=== PATIENT | female | born 1975 | race Caucasian/White ===

== ENCOUNTER → 2021-09-23 14:05 | Outpatient (CLI) | payer OTHER, MEDICAID, SELFPAY ==
[2021-09-23 20:09] LABS: Add Manual Diff / Slide Review NO; Basophils Absolute Auto 100 /uL (0-100); Basophils Percent Auto 0.7 % (0-2); Eosinophils Absolute Auto 200 /uL (0-450); Hematocrit 36.9 % (36-46); Hemoglobin 12.2 g/dL (12.0-16.0); Lymphocytes Absolute Auto 2100 /uL (1100-4500); Lymphocytes Percent Auto 23.4 % (25-40); Mean Corpuscular HGB Conc 32.9 % (30-36); Mean Corpuscular Hemoglobin 26.5 PG (26-34); Mean Corpuscular Volume 80.5 fL (80-100); Monocytes Absolute Auto 500 /uL (0-900); Monocytes Percent Auto 5.7 % (3-14); Neutrophils Absolute Auto 6100 /uL (1500-7000); Neutrophils Percent Auto 68.2 % (50-75); Platelet Count 320 X10^3/uL (150-400); Red Blood Cell Count 4.59 X10^6/uL (4.0-5.2); Red Cell Distribution Width 14.4 % (11.6-14.8); White Blood Cell Count 8.9 X10^3/uL (4.5-11.0)
[2021-09-23 20:26] LABS: Alanine Aminotransferase 14 IU/L (<35); Albumin 3.7 g/dL (3.5-5.0); Albumin Globulin Ratio 1.2 (1.0-2.8); Alkaline Phosphatase 60 U/L (38-126); Aspartate Aminotransferase 16 IU/L (14-36); BUN Creatinine Ratio 26.8 (6-22); Bilirubin Total 0.4 mg/dL (0.2-1.3); Blood Urea Nitrogen 15 mg/dL (7-17); C-Reactive Protein Quant < 0.5 mg/dL (<1.0); Calcium 8.8 mg/dL (8.4-10.2); Carbon Dioxide 25 mmol/L (22-32); Chloride 103 mmol/L (98-107); Estimated Glomerular Filt Rate > 60 mL/min (>60); Glucose 265 mg/dL (70-100); HEMOLYSIS < 15 (0-50); Potassium 4.3 mmol/L (3.4-5.1); Sodium 133 mmol/L (137-145); Total Protein 6.7 g/dL (6.3-8.2)
[2021-09-23 20:28] LABS: Hemoglobin A1C% w Est Avg Glu 8.8 % (4.0-6.0)
[2021-09-23 20:30] LABS: Microalbumin Urine Random < 0.6 mg/dL (0-1.6)
[2021-09-23 20:32] LABS: Erythrocyte Sedimentation Rate 14 MM/HR (0-20)
[2021-09-23 20:37] LABS: Rheumatoid Factor < 8.6 IU/mL (<12.0)
[2021-09-26 16:03] LABS: ANA Screen, IFA Negative (.)
== END ==
PROVIDERS: PCP Family Medicine; Visit Provider Family Medicine
DX: E10.65 Type 1 diabetes mellitus with hyperglycemia (principal); E78.5 Hyperlipidemia, unspecified; G89.29 Other chronic pain; M25.511 Pain in right shoulder; M25.512 Pain in left shoulder; M79.641 Pain in right hand; M79.642 Pain in left hand; M15.4 Erosive (osteo)arthritis
CPT/HCPCS: 80053; 82043; 82570; 83036; 85025; 85651; 86038; 86140; 86430

== ENCOUNTER → 2021-12-26 11:46 | Outpatient (CLI) | payer OTHER, MEDICAID, SELFPAY ==
[2021-12-26 20:19] LABS: Free T4, Direct Thyroxine 1.04 ng/dL (0.78-2.19)
== END ==
PROVIDERS: PCP Family Medicine; Visit Provider Student in an Organized Health Care Education/Training Program
DX: E03.8 Other specified hypothyroidism (principal); E06.3 Autoimmune thyroiditis
CPT/HCPCS: 84439; 84443

== ENCOUNTER → 2022-07-03 09:35 | Outpatient (CLI) | payer OTHER, MEDICAID, SELFPAY ==
[2022-07-03 19:27] LABS: BUN Creatinine Ratio 22.2 (6-22); Blood Urea Nitrogen 14 mg/dL (7-17); Calcium 8.7 mg/dL (8.4-10.2); Carbon Dioxide 28 mmol/L (22-32); Chloride 103 mmol/L (98-107); Cholesterol 167 mg/dL (140-199); Estimated Glomerular Filt Rate > 60 mL/min (>60); Glucose 122 mg/dL (70-100); HDL Cholesterol 76 mg/dL (40-60); HEMOLYSIS < 15 (0-50); LDL Cholesterol Calculated 81 mg/dL (<100); Potassium 4.4 mmol/L (3.4-5.1); Sodium 136 mmol/L (137-145); Triglycerides 51 mg/dL (35-150)
[2022-07-03 19:56] LABS: TSH w/ Reflex to FT4 5.64 uIU/mL (0.47-4.68)
[2022-07-03 20:28] LABS: Free T4, Direct Thyroxine 1.13 ng/dL (0.78-2.19)
[2022-07-05 02:32] LABS: Labcorp Hemoglobin (Hb) A1c 8.1 % (4.8-5.6)
== END ==
PROVIDERS: PCP Family Medicine; Visit Provider Family Medicine
DX: E03.9 Hypothyroidism, unspecified (principal); E10.9 Type 1 diabetes mellitus without complications; E78.2 Mixed hyperlipidemia; F32.9 Major depressive disorder, single episode, unspecified
CPT/HCPCS: 80048; 80061; 83036; 84439; 84443

== ENCOUNTER → 2023-03-19 09:57 | Outpatient (CLI) | payer OTHER, MEDICAID, SELFPAY ==
[2023-03-19 21:40] LABS: Add Manual Diff / Slide Review NO; Basophils Absolute Auto 100 /uL (0-100); Basophils Percent Auto 0.7 % (0-2); Eosinophils Absolute Auto 300 /uL (0-450); Eosinophils Percent Auto 3.9 % (2-4); Hematocrit 36.6 % (36-46); Hemoglobin 12.2 g/dL (12.0-16.0); Lymphocytes Absolute Auto 2000 /uL (1100-4500); Lymphocytes Percent Auto 26.6 % (25-40); Mean Corpuscular HGB Conc 33.3 % (30-36); Mean Corpuscular Hemoglobin 26.5 PG (26-34); Mean Corpuscular Volume 79.6 fL (80-100); Monocytes Absolute Auto 600 /uL (0-900); Monocytes Percent Auto 7.5 % (3-14); Neutrophils Absolute Auto 4700 /uL (1500-7000); Neutrophils Percent Auto 61.3 % (50-75); Platelet Count 320 X10^3/uL (150-400); Red Cell Distribution Width 13.3 % (11.6-14.8); White Blood Cell Count 7.6 X10^3/uL (4.5-11.0)
[2023-03-19 21:41] LABS: Alanine Aminotransferase 25 IU/L (<35); Albumin 3.6 g/dL (3.5-5.0); Albumin Globulin Ratio 1.3 (1.0-2.8); Alkaline Phosphatase 57 U/L (38-126); Aspartate Aminotransferase 23 IU/L (14-36); BUN Creatinine Ratio 32.6 (6-22); Bilirubin Total 0.4 mg/dL (0.2-1.3); Blood Urea Nitrogen 15 mg/dL (7-17); Calcium 8.9 mg/dL (8.4-10.2); Carbon Dioxide 24 mmol/L (22-32); Chloride 104 mmol/L (98-107); Cholesterol 143 mg/dL (140-199); Estimated Glomerular Filt Rate > 60 mL/min (>60); Globulin 2.8 g/dL (1.7-4.1); Glucose 132 mg/dL (70-100); HDL Cholesterol 59 mg/dL (40-60); HEMOLYSIS < 15 (0-50); LDL Cholesterol Calculated 76 mg/dL (<100); Potassium 4.1 mmol/L (3.4-5.1); Sodium 136 mmol/L (137-145); Total Protein 6.4 g/dL (6.3-8.2); Triglycerides 42 mg/dL (35-150)
[2023-03-19 22:32] LABS: Creatinine Urine Random 177.5 mg/dL
[2023-03-19 22:37] LABS: Microalbumi Creatinin Ratio Ur 6.1 ug/mg CR (<30); Microalbumin Urine Random 1.1 mg/dL (0-1.6)
[2023-03-19 23:19] LABS: Free T4, Direct Thyroxine 0.99 ng/dL (0.78-2.19)
[2023-03-20 02:04] LABS: Hemoglobin A1C% w Est Avg Glu 7.5 % (4.0-6.0)
[2023-03-21 07:58] LABS: C Peptide < 0.1 ng/mL (1.1-4.4)
== END ==
PROVIDERS: Student in an Organized Health Care Education/Training Program; PCP Family Medicine; Visit Provider Family Medicine
DX: E10.618 Type 1 diabetes mellitus with other diabetic arthropathy (principal); M75.00 Adhesive capsulitis of unspecified shoulder; E03.9 Hypothyroidism, unspecified; E78.2 Mixed hyperlipidemia; E10.9 Type 1 diabetes mellitus without complications; E10.69 Type 1 diabetes mellitus with other specified complication
CPT/HCPCS: 80053; 80061; 82043; 82570; 83036; 84439; 84443; 84681; 85025

== ENCOUNTER → 2023-05-11 11:18 | Outpatient (CLI) | payer OTHER, MEDICAID, SELFPAY ==
[2023-05-14 20:12] LABS: Tissue Transglutaminase IgA <2 U/mL (0-3)
[2023-05-18 01:03] LABS: Alder IgE <0.10 kU/L (Class 0); Alternaria alternata IgE <0.10 kU/L (Class 0); Aspergillus fumigatus IgE <0.10 kU/L (Class 0); Box Elder IgE <0.10 kU/L (Class 0); Cat Dander IgE <0.10 kU/L (Class 0); Cladosporium herbarum IgE <0.10 kU/L (Class 0); Cockroach IgE <0.10 kU/L (Class 0); Cottonwood IgE <0.10 kU/L (Class 0); D farinae IgE <0.10 kU/L (Class 0); D pteronyssinus IgE <0.10 kU/L (Class 0); Dog Dander IgE <0.10 kU/L (Class 0); Elm Tree IgE <0.10 kU/L (Class 0); IgE Mugwort <0.10 kU/L (Class 0); IgE Thistle,Russian <0.10 kU/L (Class 0); Immunoglobulin E 160 IU/mL (6-495); Mountain Cedar IgE <0.10 kU/L (Class 0); Mouse Urine Proteins IgE <0.10 kU/L (Class 0); Oak Tree IgE <0.10 kU/L (Class 0); Penicillium chrysogen IgE <0.10 kU/L (Class 0); Pigweed, Common IgE <0.10 kU/L (Class 0); Sheep Sorrel IgE <0.10 kU/L (Class 0); Silver Birch IgE <0.10 kU/L (Class 0); Timothy Grass IgE <0.10 kU/L (Class 0)
== END ==
PROVIDERS: PCP Family Medicine; Visit Provider Family Medicine
DX: R10.9 Unspecified abdominal pain (principal); R14.0 Abdominal distension (gaseous); R14.3 Flatulence
CPT/HCPCS: 82785; 83516; 86003

== ENCOUNTER → 2023-05-20 10:59 | Outpatient (CLI) | payer OTHER, MEDICAID, SELFPAY ==
[2023-05-25 16:56] LABS: Anti Mullerian Hormone 0.083 ng/mL (.)
== END ==
PROVIDERS: PCP Family Medicine; Visit Provider Nurse Practitioner Adult Health
DX: N92.6 Irregular menstruation, unspecified (principal)
CPT/HCPCS: 82397

== ENCOUNTER → 2023-07-01 10:55 | Outpatient (CLI) | payer OTHER, MEDICAID, SELFPAY | PROVIDERS: PCP Family Medicine; Visit Provider Nurse Practitioner Adult Health | DX: N89.8 Other specified noninflammatory disorders of vagina (principal) | CPT/HCPCS: 87798; 87801 ==

== ENCOUNTER → 2023-09-08 09:31 | Outpatient (CLI) | payer OTHER, MEDICAID, SELFPAY ==
[2023-09-08 20:13] LABS: Add Manual Diff / Slide Review NO; Basophils Absolute Auto 100 /uL (0-100); Basophils Percent Auto 0.9 % (0-2); Eosinophils Absolute Auto 200 /uL (0-450); Eosinophils Percent Auto 1.8 % (2-4); Hemoglobin 12.8 g/dL (12.0-16.0); Lymphocytes Absolute Auto 2100 /uL (1100-4500); Lymphocytes Percent Auto 21.5 % (25-40); Mean Corpuscular HGB Conc 32.8 % (30-36); Mean Corpuscular Hemoglobin 26.5 PG (26-34); Monocytes Absolute Auto 500 /uL (0-900); Monocytes Percent Auto 5.6 % (3-14); Neutrophils Absolute Auto 6800 /uL (1500-7000); Neutrophils Percent Auto 70.2 % (50-75); Platelet Count 315 X10^3/uL (150-400); Red Blood Cell Count 4.81 X10^6/uL (4.0-5.2); White Blood Cell Count 9.7 X10^3/uL (4.5-11.0)
[2023-09-08 20:26] LABS: HEMOLYSIS < 15 (0-50); Iron 74 ug/dL (37-170)
[2023-09-08 20:31] LABS: BUN Creatinine Ratio 27.1 (6-22); Blood Urea Nitrogen 16 mg/dL (7-17); C-Reactive Protein Quant < 0.5 mg/dL (<1.0); Cholesterol 155 mg/dL (140-199); Estimated Glomerular Filt Rate > 60 mL/min (>60); HDL Cholesterol 75 mg/dL (40-60); LDL Cholesterol Calculated 66 mg/dL (<100); Triglycerides 72 mg/dL (35-150)
[2023-09-08 20:34] LABS: Hemoglobin A1C% w Est Avg Glu 8.1 % (4.0-6.0)
[2023-09-08 20:35] LABS: Erythrocyte Sedimentation Rate 12 MM/HR (0-20)
[2023-09-08 20:37] LABS: Percent Iron Saturation 20 % (15-50); Total Iron Binding Capacity 362 ug/dL (265-497); Transferrin 278 mg/dL (206-381)
[2023-09-08 20:44] LABS: Free T4, Direct Thyroxine 1.42 ng/dL (0.78-2.19)
[2023-09-08 20:51] LABS: Creatinine Urine Random 195.97 mg/dL
[2023-09-08 20:55] LABS: Microalbumin Urine Random 2.1 mg/dL (0-1.6)
[2023-09-10 07:37] LABS: C Peptide < 0.1 ng/mL (1.1-4.4)
[2023-09-11 14:09] LABS: ANA Screen, IFA Negative (.)
== END ==
PROVIDERS: Student in an Organized Health Care Education/Training Program; PCP Family Medicine; Visit Provider Family Medicine
DX: R14.0 Abdominal distension (gaseous) (principal); R10.9 Unspecified abdominal pain; E10.618 Type 1 diabetes mellitus with other diabetic arthropathy; M75.00 Adhesive capsulitis of unspecified shoulder; E78.2 Mixed hyperlipidemia; F32.9 Major depressive disorder, single episode, unspecified; F41.1 Generalized anxiety disorder; M12.9 Arthropathy, unspecified; E03.9 Hypothyroidism, unspecified; E10.69 Type 1 diabetes mellitus with other specified complication; E10.9 Type 1 diabetes mellitus without complications
CPT/HCPCS: 80061; 82043; 82565; 82570; 83036; 83540; 83550; 84439; 84443; 84520; 84681; 85025; 85651; 86038; 86140

== ENCOUNTER → 2023-12-23 11:32 | Outpatient (CLI) | payer OTHER, MEDICAID, SELFPAY ==
[2023-12-27 18:36] LABS: Tissue Transglutaminase IgG 4 U/mL (0-5)
== END ==
PROVIDERS: PCP Family Medicine; Visit Provider Family Medicine
DX: E03.9 Hypothyroidism, unspecified (principal); M12.9 Arthropathy, unspecified
CPT/HCPCS: 83516

== ENCOUNTER → 2024-08-25 13:11 | Outpatient (CLI) | payer OTHER, SELFPAY ==
[2024-08-25 19:37] LABS: HEMOLYSIS < 15 (0-50); Iron 58 ug/dL (37-170)
[2024-08-25 19:38] LABS: Add Manual Diff / Slide Review NO; Hematocrit 37.9 % (36-46); Hemoglobin 12.9 g/dL (12.0-16.0); Lymphocytes Absolute Auto 2300 /uL (1100-4500); Mean Corpuscular HGB Conc 34.0 % (30-36); Mean Corpuscular Hemoglobin 28.3 PG (26-34); Mean Corpuscular Volume 83.3 fL (80-100); Platelet Count 296 X10^3/uL (150-400)
[2024-08-25 19:42] LABS: Alanine Aminotransferase 23 IU/L (<35); Albumin 3.8 g/dL (3.5-5.0); Albumin Globulin Ratio 1.3 (1.0-2.8); Alkaline Phosphatase 68 U/L (38-126); Blood Urea Nitrogen 15 mg/dL (7-17); Calcium 9.3 mg/dL (8.4-10.2); Carbon Dioxide 30 mmol/L (22-32); Chloride 101 mmol/L (98-107); Cholesterol 173 mg/dL (140-199); Estimated Glomerular Filt Rate > 60 mL/min (>60); Globulin 2.9 g/dL (1.7-4.1); Glucose 235 mg/dL (70-99); HDL Cholesterol 90 mg/dL (40-60); HEMOLYSIS < 15 (0-50); Potassium 4.2 mmol/L (3.4-5.1); Sodium 136 mmol/L (137-145); Total Protein 6.7 g/dL (6.3-8.2); Triglycerides 63 mg/dL (35-150)
[2024-08-25 19:51] LABS: Percent Iron Saturation 15 % (15-50); Total Iron Binding Capacity 378 ug/dL (265-497); Transferrin 324 mg/dL (206-381)
[2024-08-25 20:01] LABS: Follicle Stimulating Hormone 54.1 mIU/mL
[2024-08-25 20:17] LABS: TSH w/ Reflex to FT4 3.93 uIU/mL (0.47-4.68)
[2024-08-25 20:18] LABS: Estradiol, Total 36.5 pg/mL; Ferritin 5 ng/mL (11-264); Microalbumi Creatinin Ratio Ur 35.0 ug/mg CR (<30)
== END ==
PROVIDERS: PCP Family Medicine; Visit Provider Family Medicine
DX: F41.1 Generalized anxiety disorder (principal); K21.9 Gastro-esophageal reflux disease without esophagitis; E10.43 Type 1 diabetes mellitus with diabetic autonomic (poly)neuropathy; K31.84 Gastroparesis; E03.9 Hypothyroidism, unspecified; E10.42 Type 1 diabetes mellitus with diabetic polyneuropathy; R61 Generalized hyperhidrosis; R00.0 Tachycardia, unspecified; N93.9 Abnormal uterine and vaginal bleeding, unspecified; R53.83 Other fatigue; E78.2 Mixed hyperlipidemia; F32.9 Major depressive disorder, single episode, unspecified; M12.9 Arthropathy, unspecified
CPT/HCPCS: 80053; 80061; 82043; 82397; 82570; 82670; 82728; 83001; 83540; 83550; 84443; 85025

== ENCOUNTER → 2024-09-21 16:39 | Outpatient (CLI) | payer OTHER, SELFPAY | PROVIDERS: PCP Family Medicine; Visit Provider Nurse Practitioner Adult Health | DX: R39.15 Urgency of urination (principal) | CPT/HCPCS: 87086 ==

== ENCOUNTER → 2025-01-19 09:13 | Outpatient (CLI) | payer OTHER, SELFPAY ==
[2025-01-19 18:58] LABS: Cholesterol 178 mg/dL (140-199); HDL Cholesterol 94 mg/dL (40-60); Triglycerides 61 mg/dL (35-150)
[2025-01-19 19:13] LABS: Hemoglobin A1C% w Est Avg Glu 7.6 % (4.0-6.0)
[2025-01-19 19:30] LABS: Thyroid Stimulating Hormone 3.23 uIU/mL (0.47-4.68)
[2025-01-19 19:42] LABS: Ferritin 11 ng/mL (11-264)
[2025-01-19 20:05] LABS: Folate 7.3 ng/mL (2.76-20.0); Vitamin B12 700 pg/mL (239-931)
== END ==
PROVIDERS: PCP Family Medicine; Visit Provider Family Medicine
DX: E11.43 Type 2 diabetes mellitus with diabetic autonomic (poly)neuropathy (principal); K31.84 Gastroparesis; E78.2 Mixed hyperlipidemia; R79.0 Abnormal level of blood mineral; R20.0 Anesthesia of skin; E03.9 Hypothyroidism, unspecified
CPT/HCPCS: 80061; 82607; 82728; 82746; 83036; 84443